=== PATIENT | female | born 1995 | race Caucasian/White ===

== ENCOUNTER 2020-12-10 09:29 | Emergency (ER) | payer OTHER, SELFPAY ==
[~2020-12-10] VITALS: Ht 157.5 cm; Wt 53.4 kg
--- NOTE | 2020-12-10 10:11 | NUR ---
Pt presents to the ER after +HCG last week and new vaginal spotting starting last night with multiple clots this AM. Pt describes R side abd pain and bilateral low back pain "like I'm on my period." LMP unknown, approx end of September, "my periods are always irregular." Pt crying. at bedside.
[2020-12-10] MEDS ORDERED: SODIUM CHLORIDE FLUSH 10ML SYR IVF ONE (10:30)
--- NOTE | 2020-12-10 10:55 | NUR ---
Pt to imaging.
[2020-12-10 10:59] LABS: BASOPHILS % (AUTO) 0 % (0-1); EOSINOPHILS % (AUTO) 0 % (1-7); LYMPHOCYTES % (AUTO) 24 % (22-44); MEAN CORPUSCULAR HEMOGLOBIN 30.7 pg (27.0-34.8); MEAN CORPUSCULAR HGB CONC 34.1 g/dL (32.4-35.8); MEAN PLATELET VOLUME 8.7 fL (7.4-10.4); MONOCYTES % (AUTO) 6 % (2-9); NEUTROPHILS % (AUTO) 69 % (42-75); PLATELET COUNT 301 x10^3/uL (130-400); RED BLOOD COUNT 5.41 x10^6/uL (3.82-5.3); RED CELL DISTRIBUTION WIDTH 12.7 % (9.6-15.2)
[2020-12-10 11:01] LABS: ALBUMIN 4.1 g/dL (3.4-5.0); ANION GAP 8 mmol/L (5-15); CHLORIDE 112 mmol/L (98-107); CREATININE 0.77 mg/dL (0.55-1.02)
[2020-12-10 11:42] VITALS: BP 108/78
--- NOTE | 2020-12-10 12:13 | NUR ---
Pt provided with demise care package.
== END 2020-12-10 12:14 | disposition home or self-care (01) ==
LOC: ED 12:08
DX: O03.9 Complete or unspecified spontaneous abortion without complication (principal)
CPT/HCPCS: 36415; 76830; 80048; 82040; 84702; 85025; 86901; 99284